=== PATIENT | female | born 1985 ===

== ENCOUNTER 2025-05-30 07:56 | Outpatient (CLI) | payer BC | END 2025-05-30 07:57 | disposition home or self-care (01) | LOC: ULT 07:56 | PROVIDERS: ATTEND Family Medicine | DX: R10.11 Right upper quadrant pain (principal); K76.0 Fatty (change of) liver, not elsewhere classified; K80.20 Calculus of gallbladder without cholecystitis without obstruction; K82.8 Other specified diseases of gallbladder | CPT/HCPCS: 76705 ==